=== PATIENT | male | born 1970 | race Caucasian/White ===

== ENCOUNTER 2018-01-21 07:34 | Emergency (ER) | payer BC ==
[~2018-01-21] VITALS: Ht 172.7 cm; Wt 109.1 kg
[2018-01-21 07:36] VITALS: TEMP 98.1
[2018-01-21] MEDS ORDERED: LIPITOR20 MG PO (07:39)
[2018-01-21] MEDS ORDERED: ALTACE 2.5MG T2.5 MG PO (07:39)
[2018-01-21] MEDS ORDERED: ASPIRIN 81M81 MG/TA2 PO (07:40)
[2018-01-21 08:16] LABS: BASO # 0.1 (0.0-0.2); BASO % 0.7 % (0.0-2.0); EOS # 0.1 (0.0-0.7); EOS % 1.4 % (0-4.0); GRAN # 6.9 (1.4-6.5); GRAN % 70.2 % (42.2-75.2); HEMATOCRIT 42.6 % (42.0-52.0); HEMOGLOBIN 14.9 g/dl (13.5-18.0); LYMPH # 2.1 (1.2-3.4); LYMPH % 21.2 % (20.0-51.0); MEAN CELL VOLUME 84 fl (80.0-100.0); MEAN CORPUSCULAR HEMOGLOBIN 29 pg (27.0-31.0); MEAN CORPUSCULAR HGB CONC 35 g/dl (33.0-37.0); MEAN PLATELET VOLUME 10.4 fl (7.4-10.4); MONO # 0.6 (0.1-0.6); MONO % 6.2 % (1.7-9.3); PLATELET COUNT 237 K/mm3 (130-400); RED BLOOD COUNT 5.06 M/mm3 (4.20-5.60); REDCELL DISTRIBUTION WIDTH-CV 12.4 % (11.5-14.5)
[2018-01-21 08:26] LABS: ALBUMIN 4.2 gm/dL (3.5-5.0); BILIRUBIN,TOTAL 0.5 mg/dL (0.0-1.0); C-REACTIVE PROTEIN 1.2 mg/dL (0.0-0.9); CALCIUM 8.9 mg/dL (8.4-10.2); CREATININE, serum 1.08 mg/dL (0.66-1.25); TOTAL PROTEIN 7.7 gm/dL (6.4-8.2)
[2018-01-21 09:43] VITALS: BP 102/60; PULSE 58
== END 2018-01-21 09:44 | disposition home or self-care (01) ==
LOC: COL.ER 07:34
PROVIDERS: Emergency Medicine
DX: R51 Headache (principal); M79.1 Myalgia; E11.9 Type 2 diabetes mellitus without complications; F17.210 Nicotine dependence, cigarettes, uncomplicated; Z79.84 Long term (current) use of oral hypoglycemic drugs; Z79.82 Long term (current) use of aspirin
CPT/HCPCS: J1885; J2405; J7030

== ENCOUNTER → 2018-12-23 | Outpatient (CLI) | payer OTHER, BC ==
[~2018-12-23] MED LIST: ALTACE 2.5MG T2.5 MG PO; ASPIRIN 81M81 MG/TA2 PO; LIPITOR20 MG PO
== END ==
LOC: COL.RAD 13:56
DX: M47.22 Other spondylosis with radiculopathy, cervical region (principal); M48.02 Spinal stenosis, cervical region